=== PATIENT | male | born 1960 | race Caucasian/White ===

== ENCOUNTER 2022-02-09 08:07 | Inpatient (IN) ==
[2022-02-09] MEDS ORDERED: SODIUM CHLORIDE 0.9% 1,000 ML IV STA ×2 (08:51→10:24)
[2022-02-09 09:12] LABS: Basophils % 0.2 % (0.0-0.8); Eosinophils % 0.1 % (0.00-10.9); Hematocrit 30.9 VOL% (42.0-52.0); Hemoglobin 9.7 GM/DL (14.0-18.0); Immature Granulocytes % 0.8 %; Immature Granulocytes Absolute 0.09 #; Lymphocytes # 0.6 10*3/uL (1.4-4.0); Lymphocytes % 5.1 % (21.2-54.2); Mean Corpuscular HGB Conc 31.4 GM/DL (32-36); Mean Corpuscular Volume 113.6 FL (87-102); Mean Platelet Volume 9.1 FL (9.6-12.0); Monocytes # 1.5 10*3/uL (0.11-0.8); Monocytes % 13.1 % (1.7-12.7); Neutrophils % 80.7 % (38.7-73.9); Platelet Count 319 T/CUMM (130-400); Red Blood Count 2.72 MC/CUMM (3.8-5.5); Red Cell Distribution Width 17.1 % (9.3-17.3); White Blood Count 11.7 T/CUMM (4-12)
[2022-02-09] MEDS ORDERED: MORPHINE 2 MG/1 ML SYRINGE IV STA (09:16)
[2022-02-09] MEDS ORDERED: ONDANSETRON 4 MG/2 ML VIAL IV ONE (09:17)
[2022-02-09 09:32] LABS: Macrocytosis 1+; Polychromasia Slight
[2022-02-09 09:47] LABS: Alanine Aminotransferase 35 U/L (16-61); Albumin 2.5 G/DL (3.4-5.0); Alkaline Phosphatase 658 U/L (45-117); Aspartate Amino Transferase 192 U/L (0-37); Blood Urea Nitrogen 18 MG/DL (7-18); Carbon Dioxide 24 MMOL/L (21-32); Chloride 101 MMOL/L (98-107); Glucose 98 MG/DL (74-106); Potassium 4.5 MMOL/L (3.5-5.1); Sodium 136 MMOL/L (136-145); Total Protein 6.7 G/DL (6.4-8.2)
[2022-02-09] MEDS ORDERED: MEROPENEM 2,000 MG in SODIUM CHLORIDE 0.9% 100 ML IV ONE ×2 (10:25→11:30)
[2022-02-09 10:53] LABS: Mucus,Urine Occasional /LPF (Occasional); RBC,Urine 1 /HPF (0-4); Squamous Epithelial Cell,Urine Occasional /HPF (0-10)
[2022-02-09 10:54] LABS: Bilirubin,Urine Negative (Negative); Blood, Urine Negative (Negative); Glucose,Urine (UA) Negative (Negative); Ketones,Urine Trace mg/dL (Negative); Nitrite,Urine Negative (Negative); Protein,Urine Trace mg/dL (Negative); Urine Appearance Clear (Clear); Urine Color Yellow (Yellow); Urine Specific Gravity 1.025 (1.001-1.035); Urine Urobilinogen 0.2 eU/dL (<2.0)
[2022-02-09] MEDS ORDERED: MEROPENEM 500 MG in SODIUM CHLORIDE 0.9% 100 ML IV ONE ×2 (11:00→12:30)
[2022-02-09] MEDS ORDERED: GLUCAGON 1 MG VIAL IM PRN (11:38)
[2022-02-09] MEDS ORDERED: ONDANSETRON 4 MG/2 ML VIAL IV PRN (11:39)
[2022-02-09] MEDS ORDERED: DEXTROSE 10% 250 ML BAG IV PRN (11:55)
[2022-02-09] MEDS: MEROPENEM 500 MG in SODIUM CHLORIDE 0.9% 100 ML IV SCH ×2 (18:45→23:33)
[2022-02-09] MEDS: MORPHINE 2 MG/1 ML SYRINGE IV PRN (20:54)
[2022-02-09] MEDS: ENOXAPARIN 40 MG/0.4 ML SYRINGE SUBCUT SCH (20:57)
[2022-02-09] MEDS: LACTATED RINGERS 1,000 ML IV SCH ×2 (21:01→23:19)
[2022-02-10] MEDS: MORPHINE 2 MG/1 ML SYRINGE IV PRN ×4 (00:55→16:40)
[2022-02-10 01:04] LABS: Basophils % 0.2 % (0.0-0.8); Eosinophils % 0.1 % (0.00-10.9); Hematocrit 21.1 VOL% (42.0-52.0); Hemoglobin 6.6 GM/DL (14.0-18.0); Immature Granulocytes % 0.9 %; Immature Granulocytes Absolute 0.11 #; Lymphocytes # 1.1 10*3/uL (1.4-4.0); Lymphocytes % 8.1 % (21.2-54.2); Mean Corpuscular HGB Conc 31.3 GM/DL (32-36); Mean Corpuscular Volume 114.7 FL (87-102); Mean Platelet Volume 9.1 FL (9.6-12.0); Monocytes % 15.5 % (1.7-12.7); Neutrophils % 75.2 % (38.7-73.9); Platelet Count 286 T/CUMM (130-400); Red Blood Count 1.84 MC/CUMM (3.8-5.5); Red Cell Distribution Width 16.9 % (9.3-17.3); White Blood Count 12.9 T/CUMM (4-12)
[2022-02-10 01:13] LABS: Albumin 2.1 G/DL (3.4-5.0); Calcium 8.4 MG/DL (8.5-10.1); Osmolality,Calculated 266.2 MOS/KG (273-304); Potassium 4.3 MMOL/L (3.5-5.1)
[2022-02-10] MEDS: MEROPENEM 500 MG in SODIUM CHLORIDE 0.9% 100 ML IV SCH ×4 (05:16→19:20)
[2022-02-10] MEDS ORDERED: SODIUM CHLORIDE 0.9% 1,000 ML IV PRN ×2 (07:15→09:17)
[2022-02-10 08:02] LABS: Hematocrit 22.4 VOL% (42.0-52.0); Hemoglobin 6.9 GM/DL (14.0-18.0)
[2022-02-10] MEDS: PANTOPRAZOLE 40 MG TABLET PO SCH (10:43)
[2022-02-10] MEDS: LACTATED RINGERS 1,000 ML IV SCH ×2 (16:40→19:39)
[2022-02-10] MEDS ORDERED: oxyCODONE/ACETAMINOPHEN 5-325 MG TABLET PO PRN (19:55)
[2022-02-10] MEDS: ENOXAPARIN 40 MG/0.4 ML SYRINGE SUBCUT SCH (21:30)
[2022-02-11] MEDS: MEROPENEM 500 MG in SODIUM CHLORIDE 0.9% 100 ML IV SCH ×5 (00:36→23:24)
[2022-02-11] MEDS: MORPHINE 2 MG/1 ML SYRINGE IV PRN ×4 (02:39→21:42)
[2022-02-11] MEDS ORDERED: ACETAMINOPHEN 325 MG TABLET PO PRN (02:43)
[2022-02-11 05:59] LABS: Basophils % 0.1 % (0.0-0.8); Eosinophils % 0.1 % (0.00-10.9); Hematocrit 23.6 VOL% (42.0-52.0); Hemoglobin 7.7 GM/DL (14.0-18.0); Immature Granulocytes Absolute 0.12 #; Lymphocytes % 7.8 % (21.2-54.2); Mean Corpuscular HGB Conc 32.6 GM/DL (32-36); Mean Corpuscular Volume 107.8 FL (87-102); Mean Platelet Volume 9.1 FL (9.6-12.0); Monocytes # 2.2 10*3/uL (0.11-0.8); Monocytes % 17.4 % (1.7-12.7); Neutrophils % 73.6 % (38.7-73.9); Platelet Count 259 T/CUMM (130-400); Red Blood Count 2.19 MC/CUMM (3.8-5.5); Red Cell Distribution Width 21.1 % (9.3-17.3); White Blood Count 12.6 T/CUMM (4-12)
[2022-02-11 06:19] LABS: Bilirubin,Total 1.2 MG/DL (0.20-1.00); Calcium 8.7 MG/DL (8.5-10.1); Hypochromia Slight; Lymphocytes 5 % (20-55); Osmolality,Calculated 267.1 MOS/KG (273-304); Platelet Estimate Adequate; Potassium 3.7 MMOL/L (3.5-5.1); Total Cells Counted 100; Total Protein 5.9 G/DL (6.4-8.2)
[2022-02-11 06:34] LABS: Folate 9.83 NG/ML (5.38-24.0); Vitamin B12 547 PG/ML (211-911)
[2022-02-11 06:44] LABS: % Iron Saturation 23.4 % (18-50); Ferritin 2854.5 ng/mL (26-388)
[2022-02-11 07:05] LABS: Sedimentation Rate-Westergren 130 MM/HR (0-20)
[2022-02-11] MEDS ORDERED: SODIUM CHLORIDE 0.9% 1,000 ML IV PRN (07:20)
[2022-02-11] MEDS ORDERED: LACTATED RINGERS 1,000 ML IV ONE (07:41)
[2022-02-11] MEDS: LACTATED RINGERS 1,000 ML IV SCH ×2 (07:53→22:33)
[2022-02-11] MEDS ORDERED: VANCOMYCIN INJ 1,250 MG in SODIUM CHLORIDE 0.9% 250 ML IV SCH (08:00)
[2022-02-11] MEDS: PANTOPRAZOLE 40 MG TABLET PO SCH (08:02)
[2022-02-11] MEDS: FERROUS SULFATE 325 MG TABLET PO SCH ×2 (08:02→21:42)
[2022-02-11] MEDS: VANCOMYCIN INJ 1,000 MG in SODIUM CHLORIDE 0.9% 250 ML IV SCH ×2 (08:04→21:50)
[2022-02-11] MEDS ORDERED: MAGNESIUM HYDROXIDE SUSP 30 ML UDCUP PO PRN (08:23)
[2022-02-11] MEDS ORDERED: LACTULOSE 20 GM/30 ML UDCUP PO PRN (10:18)
[2022-02-11] MEDS: MORPHINE ER 15 MG TABLET PO SCH ×2 (11:10→21:49)
[2022-02-11] MEDS ORDERED: HYDROmorphone 1 MG/1 ML SYRINGE IV PRN (11:26)
[2022-02-11] MEDS: oxyCODONE/ACETAMINOPHEN 5-325 MG TABLET PO PRN ×2 (12:47→18:37)
[2022-02-11] MEDS ORDERED: oxyCODONE/ACETAMINOPHEN 5-325 MG TABLET PO SCH (15:00)
[2022-02-11] MEDS: ENOXAPARIN 40 MG/0.4 ML SYRINGE SUBCUT SCH (21:41)
[2022-02-11] MEDS: DOCUSATE SODIUM 100 MG CAPSULE PO SCH (21:42)
[2022-02-12] MEDS: MORPHINE 2 MG/1 ML SYRINGE IV PRN ×2 (04:05→16:50)
[2022-02-12] MEDS: MEROPENEM 500 MG in SODIUM CHLORIDE 0.9% 100 ML IV SCH ×3 (05:40→17:37)
[2022-02-12 05:57] LABS: Basophils % 0.2 % (0.0-0.8); Eosinophils % 0.2 % (0.00-10.9); Hematocrit 28.6 VOL% (42.0-52.0); Hemoglobin 9.1 GM/DL (14.0-18.0); Immature Granulocytes % 0.7 %; Immature Granulocytes Absolute 0.08 #; Lymphocytes % 8.4 % (21.2-54.2); Mean Corpuscular HGB Conc 31.8 GM/DL (32-36); Mean Corpuscular Volume 103.6 FL (87-102); Mean Platelet Volume 9.2 FL (9.6-12.0); Monocytes # 2.1 10*3/uL (0.11-0.8); Monocytes % 16.9 % (1.7-12.7); Neutrophils % 73.6 % (38.7-73.9); Platelet Count 276 T/CUMM (130-400); Red Blood Count 2.76 MC/CUMM (3.8-5.5); Red Cell Distribution Width 22.1 % (9.3-17.3); White Blood Count 12.2 T/CUMM (4-12)
[2022-02-12 06:16] LABS: Hypochromia Slight; Lymphocytes 8 % (20-55); Platelet Estimate Adequate; Total Cells Counted 100
[2022-02-12 06:18] LABS: Albumin 1.9 G/DL (3.4-5.0); Bilirubin,Total 1.4 MG/DL (0.20-1.00); Calcium 8.6 MG/DL (8.5-10.1); Osmolality,Calculated 267.1 MOS/KG (273-304); Potassium 3.8 MMOL/L (3.5-5.1)
[2022-02-12] MEDS: FERROUS SULFATE 325 MG TABLET PO SCH ×2 (09:30→20:40)
[2022-02-12] MEDS: MORPHINE ER 15 MG TABLET PO SCH (09:30)
[2022-02-12] MEDS: VANCOMYCIN INJ 1,000 MG in SODIUM CHLORIDE 0.9% 250 ML IV SCH ×2 (09:30→22:23)
[2022-02-12] MEDS ORDERED: MORPHINE ER 15 MG TABLET PO ONE (10:10)
[2022-02-12] MEDS: DOCUSATE SODIUM 100 MG CAPSULE PO SCH ×2 (10:28→20:40)
[2022-02-12] MEDS: PANTOPRAZOLE 40 MG TABLET PO SCH (10:30)
[2022-02-12] MEDS: ENOXAPARIN 40 MG/0.4 ML SYRINGE SUBCUT SCH (20:41)
[2022-02-12] MEDS: MORPHINE ER 30 MG TABLET PO SCH (20:41)
[2022-02-12] MEDS: oxyCODONE/ACETAMINOPHEN 5-325 MG TABLET PO PRN (22:32)
[2022-02-13] MEDS: MEROPENEM 500 MG in SODIUM CHLORIDE 0.9% 100 ML IV SCH ×4 (00:33→17:12)
[2022-02-13 06:09] LABS: Basophils % 0.2 % (0.0-0.8); Eosinophils % 0.3 % (0.00-10.9); Hematocrit 28.6 VOL% (42.0-52.0); Hemoglobin 8.9 GM/DL (14.0-18.0); Immature Granulocytes % 0.6 %; Immature Granulocytes Absolute 0.07 #; Lymphocytes # 1.2 10*3/uL (1.4-4.0); Lymphocytes % 9.8 % (21.2-54.2); Mean Corpuscular HGB Conc 31.1 GM/DL (32-36); Mean Corpuscular Volume 105.5 FL (87-102); Mean Platelet Volume 9.2 FL (9.6-12.0); Monocytes # 1.9 10*3/uL (0.11-0.8); Monocytes % 16.5 % (1.7-12.7); Neutrophils % 72.6 % (38.7-73.9); Platelet Count 247 T/CUMM (130-400); Red Blood Count 2.71 MC/CUMM (3.8-5.5); Red Cell Distribution Width 21.2 % (9.3-17.3); White Blood Count 11.8 T/CUMM (4-12)
[2022-02-13 06:32] LABS: Albumin 1.9 G/DL (3.4-5.0); Band Neutrophils 1 % (0-10); Bilirubin,Total 1.1 MG/DL (0.20-1.00); Calcium 8.8 MG/DL (8.5-10.1); Eosinophils 1 % (0-10); Lymphocytes 7 % (20-55); Osmolality,Calculated 267.1 MOS/KG (273-304); Potassium 3.7 MMOL/L (3.5-5.1); Total Cells Counted 100; Total Protein 5.8 G/DL (6.4-8.2)
[2022-02-13 06:33] LABS: Anisocytosis 1+; Hypochromia Slight; Macrocytosis 1+
[2022-02-13] MEDS: MORPHINE 2 MG/1 ML SYRINGE IV PRN ×2 (08:09→15:09)
[2022-02-13] MEDS: PANTOPRAZOLE 40 MG TABLET PO SCH ×2 (08:50→08:57)
[2022-02-13] MEDS: MORPHINE ER 30 MG TABLET PO SCH (08:50)
[2022-02-13] MEDS: FERROUS SULFATE 325 MG TABLET PO SCH ×2 (08:57→21:39)
[2022-02-13] MEDS: DOCUSATE SODIUM 100 MG CAPSULE PO SCH ×2 (08:57→21:40)
[2022-02-13] MEDS ORDERED: VANCOMYCIN INJ 1,250 MG in SODIUM CHLORIDE 0.9% 250 ML IV SCH (09:00)
[2022-02-13] MEDS: LACTATED RINGERS 1,000 ML IV SCH (11:45)
[2022-02-13] MEDS ORDERED: propofoL 200 MG/20 ML VIAL IV ONE (13:52)
[2022-02-13] MEDS ORDERED: LIDOCAINE 2% 5 ML VIAL ONE (13:52)
[2022-02-13] MEDS ORDERED: ETOMIDATE 20 MG/10 ML VIAL IV ONE (13:52)
[2022-02-13] MEDS ORDERED: SUCCINYLCHOLINE 200 MG/10 ML VIAL ONE (13:52)
[2022-02-13] MEDS ORDERED: SEVOFLURANE 1 UNIT/15 MINUTE INH ONE (14:15)
[2022-02-13] MEDS ORDERED: PHENYLEPHRINE 1 MG/10 ML SYRINGE IV ONE (14:15)
[2022-02-13] MEDS: FLUCONAZOLE 40 MG/ML 35 ML/BOTTLE PO SCH (15:08)
[2022-02-13] MEDS ORDERED: MORPHINE IR 15 MG TABLET PO PRN (15:50)
[2022-02-13] MEDS ORDERED: NALOXONE 0.4 MG/ML VIAL IV PRN (15:59)
[2022-02-13] MEDS ORDERED: fentaNYL 50 MCG/HR PATCH TRANSDERM SCH (16:06)
[2022-02-13] MEDS: HYDROmorphone 2 MG TABLET PO PRN (16:18)
[2022-02-13 18:21] LABS: Bacteria,Urine Occasional /HPF (Few); Mucus,Urine Occasional /LPF (Occasional)
[2022-02-13 18:22] LABS: Bilirubin,Urine Negative (Negative); Blood, Urine Negative (Negative); Glucose,Urine (UA) Negative (Negative); Ketones,Urine 15 mg/dL (Negative); Nitrite,Urine Negative (Negative); Protein,Urine Negative (Negative); Urine Appearance Clear (Clear); Urine Color Yellow (Yellow); Urine Specific Gravity 1.025 (1.001-1.035); Urine pH 5.5 (4.5-8.0)
[2022-02-13 18:23] LABS: Urine Urobilinogen 0.2 eU/dL (<2.0)
[2022-02-13] MEDS: ENOXAPARIN 40 MG/0.4 ML SYRINGE SUBCUT SCH (21:39)
[2022-02-13] MEDS: oxyCODONE/ACETAMINOPHEN 5-325 MG TABLET PO PRN (21:39)
[2022-02-14] MEDS: MEROPENEM 500 MG in SODIUM CHLORIDE 0.9% 100 ML IV SCH ×3 (00:18→11:20)
[2022-02-14] MEDS: HYDROmorphone 2 MG TABLET PO PRN ×3 (00:18→08:46)
[2022-02-14 05:02] LABS: Basophils % 0.1 % (0.0-0.8); Eosinophils % 0.1 % (0.00-10.9); Hematocrit 28.1 VOL% (42.0-52.0); Hemoglobin 8.8 GM/DL (14.0-18.0); Immature Granulocytes % 0.6 %; Immature Granulocytes Absolute 0.08 #; Lymphocytes % 7.5 % (21.2-54.2); Mean Corpuscular HGB Conc 31.3 GM/DL (32-36); Mean Corpuscular Volume 104.1 FL (87-102); Mean Platelet Volume 9.1 FL (9.6-12.0); Monocytes # 1.7 10*3/uL (0.11-0.8); Monocytes % 12.5 % (1.7-12.7); Neutrophils % 79.2 % (38.7-73.9); Platelet Count 265 T/CUMM (130-400); Red Cell Distribution Width 20.5 % (9.3-17.3); White Blood Count 13.8 T/CUMM (4-12)
[2022-02-14 05:17] LABS: Albumin 1.8 G/DL (3.4-5.0); Bilirubin,Total 1.1 MG/DL (0.20-1.00); Calcium 8.3 MG/DL (8.5-10.1); Osmolality,Calculated 273.8 MOS/KG (273-304); Potassium 3.5 MMOL/L (3.5-5.1); Total Protein 6.1 G/DL (6.4-8.2)
[2022-02-14 05:38] LABS: Free T4 (Free Thyroxine) 1.6 NG/DL (0.76-1.46); Thyroid Stimulating Hormone 1.89 uIU/ml (0.358-3.74)
[2022-02-14] MEDS: LACTATED RINGERS 1,000 ML IV SCH (07:30)
[2022-02-14] MEDS: PANTOPRAZOLE 40 MG TABLET PO SCH (08:44)
[2022-02-14] MEDS: FERROUS SULFATE 325 MG TABLET PO SCH (08:45)
[2022-02-14] MEDS: FLUCONAZOLE 40 MG/ML 35 ML/BOTTLE PO SCH (08:47)
[2022-02-14] MEDS: DOCUSATE SODIUM 100 MG CAPSULE PO SCH (08:49)
[2022-02-14 12:18] VITALS: BP 121/67
[2022-02-14] MEDS ORDERED: fentaNYL 50 MCG/HR PATCH TRANSDERM SCH (15:58)
[2022-02-15 13:12] LABS: Hb A 95.5 % (95.8-98.0); Hb A2 2.5 % (2.0-3.3)
[2022-02-16 06:29] LABS: Hemoglobin A1 (Alkaline) 91.9 % (96.5-98.5); Hemoglobin A2 (Alkaline) 2.6 % (1.5-3.5); Hemoglobin F (Alkaline) 5.5 %
== END 2022-02-14 12:50 | disposition home or self-care (01) | DRG 375 ==
LOC: N.ED 08:07 → N.EDINP 11:38 → SUATTDRO 11:38 → N.TELES 13:46
PROVIDERS: ADMIT Family Medicine; ATTEND Internal Medicine